=== PATIENT | male | born 1985 | race Caucasian/White ===

== ENCOUNTER 2020-04-10 08:50 | Emergency (ER) | payer OTHER ==
[~2020-04-10 08:50] MED LIST: CYCLOBENZAPRINE10 MG PO; PREDNISONE 20MG20 MG PO; TISSUE REJUVENATOR PO
[2020-04-10 10:10] LABS: BASOPHIL 0.8 % (0-2); EOSINOPHIL 0.1 % (0-5); HCT 48.3 % (42.0-52.0); HGB 15.9 g/dl (13.2-18.0); LYMPHOCYTE 7.3 % (15-48); MCH 29.7 pg (25.0-31.0); MCHC 32.9 g/dL (32.0-36.0); MCV 90.3 fL (78.0-100.0); MONOCYTE 6.1 % (0-12); MPV 11.4 fL (6.0-9.5); NEUTROPHIL 85.1 % (41-80); NRBC 0; PLT 165 K/uL (150-400); RBC 5.35 M/uL (4.70-6.00); RDW 12.7 % (11.5-14.0); WBC 17.2 K/uL (4.0-10.5)
[2020-04-10 10:29] LABS: BUN/CREAT RATIO (CALC) 12.7 RATIO; CREATININE 1.02 mg/dL (0.67-1.17); POTASSIUM 4.3 mmol/L (3.5-5.1)
[2020-04-10 10:58] LABS: CORONAVIRUS 2019 SARS-COV-2 POSITIVE (NEGATIVE); INFLUENZA A NAA NEGATIVE (NEGATIVE)
== END 2020-04-10 15:16 | disposition home or self-care (01) ==
LOC: FER 08:50
PROVIDERS: Emergency Medicine
DX: U07.1 COVID-19 (principal)
CPT/HCPCS: 36415; 71045; 80048; 85025; J7030; J7050; M0239; U0002

== ENCOUNTER 2020-04-12 14:34 | Emergency (ER) | payer OTHER ==
[2020-04-12 16:06] LABS: BASOPHIL 0.4 % (0-2); EOSINOPHIL 0.9 % (0-5); HGB 15.2 g/dl (13.2-18.0); LYMPHOCYTE 3.5 % (15-48); MCHC 33.8 g/dL (32.0-36.0); MCV 88.9 fL (78.0-100.0); MONOCYTE 3.7 % (0-12); MPV 11.4 fL (6.0-9.5); NRBC 0; PLT 121 K/uL (150-400); RBC 5.06 M/uL (4.70-6.00); RDW 12.8 % (11.5-14.0); WBC 10.2 K/uL (4.0-10.5)
[2020-04-12 16:13] LABS: MONOSPOT (MONONUCLEOSIS) NEGATIVE (NEGATIVE)
[2020-04-12 16:20] LABS: BUN/CREAT RATIO (CALC) 12.5 RATIO; CREATININE 1.04 mg/dL (0.67-1.17); POTASSIUM 3.9 mmol/L (3.5-5.1)
[2020-04-12] MEDS ORDERED: ZOFRAN4 M1 PO (18:57)
[2020-04-12] MEDS ORDERED: NORCO 5-325 TA1 EACH PO (18:57)
== END 2020-04-12 19:33 | disposition home or self-care (01) ==
LOC: FER 14:34
PROVIDERS: Nurse Practitioner Family
DX: U07.1 COVID-19 (principal)
CPT/HCPCS: 36415; 80048; 85025; 86308; 87880; 96372; J0561; J1885; J2550; J7030

== ENCOUNTER 2020-04-14 09:20 | Emergency (ER) | payer OTHER ==
[~2020-04-14 09:20] MED LIST changes: +NORCO 5-325 TA1 EACH PO; +ZOFRAN4 M1 PO
[2020-04-14 10:09] LABS: BILIRUBIN 1+ mg/dL (NEGATIVE); BLOOD NEGATIVE Ery/uL (NEGATIVE); CLARITY CLEAR (CLEAR); COLOR YELLOW (YELLOW); GLUCOSE (U) NORMAL (NORMAL); LEUKOCYTES NEGATIVE Leu/uL (NEGATIVE); NITRITE POSITIVE (NEGATIVE); PROTEIN 2+ mg/dL (NEGATIVE); SPECIFIC GRAVITY >=1.030 (1.001-1.030)
[2020-04-14 10:15] LABS: BASOPHIL 0.5 % (0-2); EOSINOPHIL 0.1 % (0-5); HCT 42.5 % (42.0-52.0); HGB 14.2 g/dl (13.2-18.0); MCH 29.5 pg (25.0-31.0); MCHC 33.4 g/dL (32.0-36.0); MCV 88.4 fL (78.0-100.0); MONOCYTE 1.5 % (0-12); MPV 13.3 fL (6.0-9.5); NEUTROPHIL 93.6 % (41-80); NRBC 0; PLT 148 K/uL (150-400); RBC 4.81 M/uL (4.70-6.00); RDW 13.2 % (11.5-14.0)
[2020-04-14 10:16] LABS: WBC 27.5 K/uL (4.0-10.5)
[2020-04-14 10:18] LABS: INR 1.23 (0.9-1.2); PROTHROMBIN TIME 14.7 SECONDS (11.4-13.6); PTT 42.4 SECONDS (22.2-34.7)
[2020-04-14 10:27] LABS: AMORPHOUS URATES CRYSTALS MODERATE; BACTERIA 2+; URINARY RBC RARE
[2020-04-14 10:28] LABS: GRANULAR CASTS TRACE
[2020-04-14 10:33] LABS: D-DIMER 4.95 ug/mLFEU (0.00-0.41)
[2020-04-14 10:34] LABS: LACTIC ACID 4.3 mmol/L (0.4-1.9)
[2020-04-14 10:46] LABS: ALBUMIN 2.8 g/dL (3.4-5.0); ALKALINE PHOSHATASE 120 U/L (46-116); ALT 58 U/L (16-63); AST 25 U/L (15-37); BILIRUBIN - TOTAL 1.7 mg/dL (0.2-1.0); CHLORIDE 95 mmol/L (98-107); CO2 (BICARBONATE) 22 mmol/L (21-32); CREATININE 2.05 mg/dL (0.67-1.17); GLOBULIN (CALCULATION) 5.1 g/dL; GLUCOSE 140 mg/dL (74-106); LDH 244 U/L (85-227); MAGNESIUM 1.9 mg/dL (1.8-2.4); POTASSIUM 3.8 mmol/L (3.5-5.1); TOTAL PROTEIN 7.9 g/dL (6.4-8.2)
[2020-04-14 10:47] LABS: BUN 34 mg/dL (7-18); C-REACTIVE PROTEIN > 18.00 mg/dL (<=0.90)
[2020-04-14 15:26] LABS: BUN/CREAT RATIO (CALC) 18.8 RATIO; CREATININE 1.81 mg/dL (0.67-1.17); POTASSIUM 3.6 mmol/L (3.5-5.1)
== END 2020-04-14 15:58 | disposition other institution (70) ==
LOC: FER 09:20
PROVIDERS: Emergency Medicine
DX: A41.89 Other specified sepsis (principal); U07.1 COVID-19; R65.21 Severe sepsis with septic shock; N17.9 Acute kidney failure, unspecified; B37.9 Candidiasis, unspecified; J90 Pleural effusion, not elsewhere classified; N39.0 Urinary tract infection, site not specified; R91.1 Solitary pulmonary nodule; R59.0 Localized enlarged lymph nodes
CPT/HCPCS: 36415; 70491; 71260; 80048; 80053; 81001; 82728; 83605; 83615; 83735; 83880; 84145; 85025; 85379; 85384; 85610; 85730; 86140; 87088; J2060; J2543; J3370; J7030; J7050; Q9967

== ENCOUNTER 2021-05-27 07:47 | Emergency (ER) | payer OTHER ==
[2021-05-27 08:22] LABS: BASOPHIL 0.9 % (0-2); EOSINOPHIL 1.3 % (0-5); HCT 47.2 % (42.0-52.0); LYMPHOCYTE 21.5 % (15-48); MCH 29.4 pg (25.0-31.0); MCHC 33.9 g/dL (32.0-36.0); MCV 86.6 fL (78.0-100.0); MONOCYTE 13.4 % (0-12); MPV 11.4 fL (6.0-9.5); NEUTROPHIL 62.7 % (41-80); NRBC 0; PLT 176 K/uL (150-400); RBC 5.45 M/uL (4.70-6.00); RDW 13.2 % (11.5-14.0); WBC 5.4 K/uL (4.0-10.5)
[2021-05-27 08:42] LABS: BILIRUBIN - TOTAL 0.7 mg/dL (0.2-1.0); BUN/CREAT RATIO (CALC) 12.1 RATIO; CREATININE 1.07 mg/dL (0.67-1.17); GLOBULIN (CALCULATION) 3.1 g/dL; POTASSIUM 3.6 mmol/L (3.5-5.1); TOTAL PROTEIN 7.1 g/dL (6.4-8.2)
[2021-05-27 09:02] LABS: CORONAVIRUS 2019 SARS-COV-2 NEGATIVE (NEGATIVE); INFLUENZA A NAA NEGATIVE (NEGATIVE)
[2021-05-27] MEDS ORDERED: ONDANSETRON ODT4 MG PO (10:19)
[2021-05-27] MEDS ORDERED: IMODIUM2 MG PO (10:19)
[2021-05-27] MEDS ORDERED: VIBRAMYCIN100 MG PO (10:19)
== END 2021-05-27 10:30 | disposition home or self-care (01) ==
LOC: FER 07:47
PROVIDERS: Internal Medicine
DX: R74.01 Elevation of levels of liver transaminase levels (principal); R19.7 Diarrhea, unspecified; Z20.822 Contact with and (suspected) exposure to COVID-19; Z86.16 Personal history of COVID-19; Z88.0 Allergy status to penicillin; Z79.82 Long term (current) use of aspirin
CPT/HCPCS: 36415; 80053; 84145; 85025; J2550; J7120; U0002